=== PATIENT | male | born 2000 | race African-American/Black ===

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

== ENCOUNTER 2020-11-08 12:44 | Emergency (ER) | payer MEDICAID ==
[~2020-11-08] VITALS: Ht 180.3 cm; Wt 68.0 kg
[~2020-11-08 12:44] MED LIST changes: +ALBUTEROL2.5 MG/3 M INH; +LORATADINE10 M2 PO; +PREDNISONE20 MG ORAL
[2020-11-08 13:17] VITALS: BP 132/74
--- NOTE | 2020-11-08 13:35 | NUR ---
ED Nurse Note: PT. AAOX4. PT. IS AMBULATORY. PER PT., HE HAS BEEN HVAING COUGH, RUNNY NOSE, AND HEADACHE X 1 MONTH NOW.
--- NOTE | 2020-11-08 14:01 | Emergency Room Report ---
History of Present Illness General Chief Complaint: Flu Like Symptoms Present Illness HPI 20-year-old male with no signal past medical history here complaining of left on and off cough and shortness of breath x2 weeks. Reports a history of asthma however has not been able to use his inhaler and ran out of his inhaler. Denies any wheezing. O2 sat within normal limit. Appears to be afebrile. Denies chest pain, palpitation, headache and dizziness. Denies loss of taste and smell, diarrhea. Has not taken medication for symptom relief. Reports that he smokes marijuana daily basis. Allergies: Coded Allergies: No Known Allergies (Unverified , 02/26/16) COVID-19 Screening Contact w/high risk pt: No Experienced COVID-19 symptoms?: Yes COVID-19 Testing performed [employer]: No Patient History Past Medical History: see triage record Past Surgical History: none Pertinent Family History: none Social History: Reports: drug use - Marijuana Immunizations: UTD Reviewed Nursing Documentation: PMH: Agreed; PSxH: Agreed Nursing Documentation-PMH Hx Cardiac Problems: No Hx Hypertension: No Hx Pacemaker: No Hx Asthma: Yes Hx COPD: No Hx Diabetes: No Hx Cancer: No Hx Gastrointestinal Problems: No Hx Dialysis: No Hx Neurological Problems: No Hx Cerebrovascular Accident: No Hx Seizures: No Review of Systems All Other Systems: negative except mentioned in HPI Physical Exam Vital Signs Date Time Temp Pulse Resp B/P (MAP) Pulse Ox O2 Delivery O2 Flow Rate FiO2 11/08/20 13:17 98.2 93 17 132/74 98 Room Air Sp02 EP Interpretation: reviewed, normal General Appearance: no apparent distress, alert, GCS 15, non-toxic Head: normocephalic, atraumatic Eyes: bilateral eye normal inspection, bilateral eye PERRL ENT: hearing grossly normal, normal pharynx, no angioedema, normal voice Neck: full range of motion, supple/symm/no masses Respiratory: no respiratory distress, no retraction, no accessory muscle use, speaking full sentences Cardiovascular #1: regular rate, rhythm, no edema Gastrointestinal: normal bowel sounds, non tender, soft, non-distended, no guarding, no rebound Rectal: deferred Genitourinary: no CVA tenderness Musculoskeletal: back normal Neurologic: alert, motor strength/tone normal, oriented x3, sensory intact, responsive, speech normal Psychiatric: judgement/insight normal, memory normal, mood/affect normal, no suicidal/homicidal ideation Skin: no rash Lymphatic: no adenopathy Medical Decision Making PA Attestation All my diagnosis and treatment plans were reviewed ad discussed with my supervising physician Dr. Macedo Diagnostic Impression: Primary Impression: Asthmatic bronchitis ER Course 20-year-old male with no signal past medical history here complaining of left on and off cough and shortness of breath x2 weeks. Reports a history of asthma however has not been able to use his inhaler and ran out of his inhaler. Denies any wheezing. O2 sat within normal limit. Appears to be afebrile. Denies chest pain, palpitation, headache and dizziness. Denies loss of taste and smell, diarrhea. Has not taken medication for symptom relief. Reports that he smokes marijuana daily basis. Ddx considered but are not limited to: bronchitis, PNA, URI viral, bacterial bronchitis, coronavirus, asthma Vital signs: are WNL, pt. is afebrile H&PE are most consistent with: Asthmatic bronchitis ORDERS: Chest x-ray, azithromycin, Phenergan, prednisone, albuterol ED INTERVENTIONS: None required at this time. DISCHARGE: At this time pt. is stable for d/c to home. Will provide printed patient care instructions, and any necessary prescriptions. Care plan and follow up instructions have been discussed with the patient prior to discharge. Patient take medication as directed, follow primary care provider patient be tested for Covid and self isolate, if worsening symptoms return to the emergency room Chest X-Ray Diagnostic Results Chest X-Ray Diagnostic Results : Chest X-Ray Ordered: Yes # of Views/Limited/Complete: 1 View Indication: Shortness of Breath EP Interpretation: Yes JEROME Xray: Interpretation reviewed, by supervising MD, and agrees with findings. Interpretation: no consolidation, no effusion, no pneumothorax, no acute cardiopulmonary disease Impression: No acute disease Electronically Signed by: Ray Davalos PA-C Last Vital Signs Date Time Temp Pulse Resp B/P (MAP) Pulse Ox O2 Delivery O2 Flow Rate FiO2 11/08/20 13:17 93 17 Room Air 11/08/20 13:17 98.2 132/74 (93) 98 Disposition: HOME, SELF-CARE Condition: Stable Scripts Albuterol Sulfate (VENTOLIN HFA) 18 Gm Hfa.aer.ad 2 PUFFS INH EVERY 6 HOURS, #18 GM 0 Refills Prov: Ray Jiménez 11/08/20 Promethazine Hcl (PROMETHAZINE HCL*) 6.25 Mg/5 Ml Syrup 5 ML ORAL Q8H, #120 ML 0 Refills Prov: Ray Jiménez 11/08/20 Prednisone* (PREDNISONE*) 20 Mg Tablet 40 MG ORAL DAILY for 5 Days, #10 TAB Prov: Ray Jiménez 11/08/20 Azithromycin* (ZITHROMAX*) 250 Mg Tablet 250 MG ORAL DAILY, #6 TAB 0 Refills Take two tables once daily for 1 day, then one tablet once daily for 4 days. Prov: Ray Jiménez 11/08/20 Referrals: NOT CHOSEN IPA/,REFERRING (PCP) Patient Instructions: Acute Bronchitis, [id number] Additional Instructions: Take medication as directed, follow-up with your primary care provider, increase oral hydration, I recommend getting tested for Covid, if worsening symptoms return to the emergency room Ray Jiménez Nov 08, 2020 14:01
[2020-11-08] MEDS ORDERED: PREDNISONE20 MG ORAL (14:02)
[2020-11-08] MEDS ORDERED: ZITHROMAX250 MG ORAL (14:02)
[2020-11-08] MEDS ORDERED: VENTOLIN HFA18 GM INH (14:02)
[2020-11-08] MEDS ORDERED: PROMETHAZI6.25 MG/1 ORAL (14:02)
[2020-11-08 14:12] VITALS: BP 142/35
--- NOTE | 2020-11-08 14:12 | NUR ---
ER DISCHARGE NOTE: Patient is cleared to be discharged per ERMD, pt is aox4, on room air, with stable vital signs. pt was given dc and prescription instructions, pt was able to verbalize understanding, pt id band removed. pt is able to ambulate with steady gait. pt took all belongings.
--- NOTE | 2020-11-08 15:27 | Diagnostic Imaging Report ---
Indication: Reason For Exam: SOB Technique: Single AP view of the chest. Comparison: None. Findings: The cardiomediastinal silhouette is within normal limits. There is mild diffuse peribronchial thickening. There is no focal consolidation, pneumothorax or pleural effusion. Osseous structures demonstrate no acute abnormality. IMPRESSION: Diffuse bronchial thickening, which is a nonspecific finding but can be seen with infectious/inflammatory airways disease in the appropriate clinical context.
== END 2020-11-08 14:16 | disposition home or self-care (01) ==
LOC: EMR 13:47
DX: J45.909 Unspecified asthma, uncomplicated (principal); F12.90 Cannabis use, unspecified, uncomplicated; Z79.899 Other long term (current) drug therapy
CPT/HCPCS: 71045; Z7502; 99283